=== PATIENT | male | born 1995 | race Caucasian/White ===

== ENCOUNTER 2020-07-29 11:52 | Outpatient (REF) | payer OTHER, SELFPAY | END 2020-07-29 11:53 | disposition home or self-care (01) | LOC: HO.LAB 11:52 | PROVIDERS: Visit Provider Internal Medicine | DX: Z20.828 Contact with and (suspected) exposure to other viral communicable diseases (principal) | CPT/HCPCS: C9803; U0003 ==

== ENCOUNTER 2020-09-02 08:40 | Outpatient (REF) | payer OTHER, SELFPAY | END 2020-09-02 08:41 | disposition home or self-care (01) | LOC: HO.LAB 08:40 | PROVIDERS: Visit Provider Internal Medicine | DX: Z20.828 Contact with and (suspected) exposure to other viral communicable diseases (principal) | CPT/HCPCS: C9803; U0003 ==